=== PATIENT | male | born 2000 ===

== ENCOUNTER 2021-02-20 02:14 | Emergency (ER) | payer OTHER ==
--- NOTE | 2021-02-20 14:40 | XR ---
EXAM: XR Right Ankle Complete, 3 or More Views CLINICAL HISTORY: right ankle injury from basketball TECHNIQUE: Frontal, lateral and oblique views of the right ankle. COMPARISON: No relevant prior studies available. FINDINGS: Bones/joints: Oblique curvilinear lucency involving the distal fibula extending from the distal diaphysis into the metadiaphysis. This is only seen on the AP view. No acute fracture. No dislocation. Soft tissues: There is lateral ankle soft tissue swelling. IMPRESSION: Possible nondisplaced fracture of the distal fibula. Soft tissue swelling.
== END 2021-02-20 09:04 | disposition home or self-care (01) ==
LOC: EC 02:14
DX: S82.831A Other fracture of upper and lower end of right fibula, initial encounter for closed fracture (principal); W01.0XXA Fall on same level from slipping, tripping and stumbling without subsequent striking against object, initial encounter; Y93.67 Activity, basketball
CPT/HCPCS: 29515; 99283